=== PATIENT | female | born 1965 | race Caucasian/White ===

== ENCOUNTER 2025-03-10 14:53 | Emergency (ER) | payer BC ==
[~2025-03-10] VITALS: Ht 162.6 cm; Wt 69.4 kg
[2025-03-10] MEDS: METOCLOPRAMIDE HCL 10 MG/2 ML VIAL IV ONE (16:00)
[2025-03-10 16:11] LABS: PLATELET COUNT (AUTO) 316 K/uL (150-450); RED BLOOD CELL COUNT(AUTO) 4.51 MIL/uL (4.0-5.2); RED CELL DISTRIBUTION WIDTH 13.6 % (11.5-15.0); WHITE BLOOD COUNT (AUTO) 12.0 K/uL (4.3-11.0)
[2025-03-10 16:31] LABS: ASPARTATE AMINOTRANSFERASE 19 U/L (15-37); CALCIUM, SERUM 9.6 mg/dL (8.5-10.1); CREATININE 0.7 mg/dL (0.6-1.3); SODIUM SERUM 139 mmol/L (136-145); TOTAL PROTEIN, SERUM 8.2 g/dL (6.4-8.2); UREA NITROGEN, BLOOD 19 mg/dL (7-18)
[2025-03-10] MEDS ORDERED: METOCLOPRAMIDE HCL 10 MG/2 ML VIAL ONE (16:38)
[2025-03-10] MEDS ORDERED: ACETAMINOPHEN 325 MG TABLET ONE (16:38)
[2025-03-10] MEDS: MORPHINE SULFATE INJ 2 MG/ML DISP.SYRIN IV ONE (16:50)
[2025-03-10] MEDS: IV NS 0.9% 1,000 ML BAG IV ONE (16:56)
[2025-03-10] MEDS: ACETAMINOPHEN 325 MG TABLET PO ONE (16:58)
[2025-03-10 17:25] LABS: APPEARANCE,URINE SLIGHTLY CLOUDY (CLEAR); BLOOD, URINE TRACE-INTA Ery/uL (NEGATIVE); LEUKOCYTE ESTERASE ,URINE NEGATIVE (NEGATIVE); NITRITE, URINE NEGATIVE (NEGATIVE); UGLUCOSE NEGATIVE (NEGATIVE)
[2025-03-10 17:42] LABS: SQUAMOUS EPITHELIAL CELL,UR Few /HPF (None Seen)
[2025-03-10 17:43] LABS: ADD URINE CULTURE YES; URINE AMORPHOUS URATE Many /HPF (None Seen)
[2025-03-10] MEDS ORDERED: Magnesium 1GM/D5W 100ML PREMIX 100 ML IV ONE (18:14)
[2025-03-10] MEDS ORDERED: KETOROLAC TROMETHAMINE 15 MG/ML VIAL ONE (18:15)
[2025-03-10] MEDS: Magnesium 1GM/D5W 100ML PREMIX 100 ML IV ONE (18:25)
[2025-03-10] MEDS: KETOROLAC TROMETHAMINE 15 MG/ML VIAL IV ONE (18:26)
[2025-03-10 20:18] VITALS: BP 114/76; TEMP 97.9; O2SAT 98
== END 2025-03-10 20:19 | disposition home or self-care (01) ==
LOC: ER 15:00
DX: R51.9 Headache, unspecified (principal); R07.89 Other chest pain; R10.9 Unspecified abdominal pain
CPT/HCPCS: 99285; 70450; 96365; 96375; 71045; 96361; 93005; 74176; 85025; 80048; 87086; 83690; 80076; 81001; 36415; 84484 ×2; J1885; J2765; J7030; J3475